=== PATIENT | female | born 1955 | race Caucasian/White ===

== ENCOUNTER 2019-04-03 11:16 | Day surgery (SDC) | payer OTHER ==
[2019-04-03] MEDS ORDERED: MIDAZOLAM 1 MG/ML 2 ML INJ ×3 (14:15)
[2019-04-03] MEDS ORDERED: FENTAnyl 50 MCG/ML VIAL (14:15)
== END 2019-04-03 14:00 | disposition home or self-care (01) ==
LOC: GIL 14:00
DX: K92.1 Melena (principal); K64.8 Other hemorrhoids; D12.5 Benign neoplasm of sigmoid colon; E11.9 Type 2 diabetes mellitus without complications
CPT/HCPCS: 45380; 82962; 88305